=== PATIENT | female | born 1970 | race Two or more races ===

== ENCOUNTER → 2019-04-30 | Outpatient (CLI) | payer OTHER ==
--- NOTE | 2019-04-30 15:05 | CT ---
EXAMINATION TYPE: CT abdomen pelvis wo con DATE OF EXAM: 04/30/2019 COMPARISON: None INDICATION: Left sided back pain DLP: 2141.2 mGycm, Automated exposure control for dose reduction was used. CONTRAST: 0 mL of Isovue 300. Study performed without Oral Contrast TECHNIQUE: Axial images were obtained from above the diaphragm to the pubic rami in the axial plane a t 5 mm thick sections. Reconstructed images are reviewed on the computer in the coronal plane. FINDINGS: Limited CT sections are obtained the lung bases. The lung bases are clear. CT ABDOMEN: Liver: Normal Spleen: Normal Pancreas: Normal Adrenal glands: The adrenal glands are normal. Gallbladder: Normal Kidneys: No masses are evident. No hydronephrosis is present. No cysts are present. No renal stone s are evident Aorta: Normal Inferior vena cava: Normal. CT PELVIS: Loops of bowel within the abdomen and pelvis are normal. There are loops of bowel which are incom pletely distended or lack oral contrast limiting their evaluation. Appendix: Normal as visualized. Urinary bladder: Decompressed with limited evaluation. Genitourinary structures: There is a 3.9 cm cyst on the left ovary. Uterus appears unremarkable. Righ t adnexal region is normal. Osseous structures: No suspicious lytic or sclerotic lesions. IMPRESSIONS: 1. 3.9 cm cyst on the left ovary may be complex. Additional workup with pelvic ultrasound is recomme nded.
== END | disposition home or self-care (01) ==
LOC: RADCTMAIN 07:50
PROVIDERS: ATTEND Urology
DX: N83.202 Unspecified ovarian cyst, left side (principal); Z88.1 Allergy status to other antibiotic agents
CPT/HCPCS: 74176

== ENCOUNTER → 2019-06-17 | Outpatient (CLI) | payer OTHER ==
--- NOTE | 2019-06-17 13:18 | US ---
EXAMINATION TYPE: US pelvis complete transvag DATE OF EXAM: 06/17/2019 COMPARISON: Correlation CT 04/30/2019 CLINICAL HISTORY: 41-year-old female N83.29 Other ovarian cysts. Follow up to ct scan TECHNIQUE: Transvaginal (TV) and Transabdominal (TA) . Transabdominal sonographic images of the pel vis were acquired. Transvaginal sonographic images were medically necessary to better assess the fol lowing anatomy: Ovaries. FINDINGS: EXAM MEASUREMENTS: Uterus: 11.7 x 4.1 x 6.2 cm Endometrial Stripe: .4 cm Right Ovary: 3.9 x 3.8 x 4.0 cm 1. Uterus: Anteverted, wnl. Incidental 1.1 cm cervical nabothian cyst. 2. Endometrium: wnl 3. Right Ovary: Cystic area 3.9 x 3.8 x 4.0 cm 4. Left Ovary: Obscured by overlying bowel gas 5. Bilateral Adnexa: wnl 6. Posterior cul-de-sac: wnl IMPRESSION: 1. A 4.0 cm cystic area in the right adnexa likely represents a dominant follicle/functional cyst of the right ovary, new from prior CT. 2. The left ovary could not be visualized. 3. A 6-8 week follow-up can reassess for the left ovary and the 4.7 cm left ovarian cyst seen on the 04/30/2019 CT.
== END | disposition home or self-care (01) ==
LOC: RADUSWWP 09:22
PROVIDERS: ATTEND Family Medicine
DX: N83.202 Unspecified ovarian cyst, left side (principal); N94.89 Other specified conditions associated with female genital organs and menstrual cycle
CPT/HCPCS: 76830; 76856

== ENCOUNTER → 2020-04-17 | Outpatient (CLI) | payer OTHER ==
--- NOTE | 2020-04-18 11:42 | MM ---
Reason for exam: screening (asymptomatic). Last mammogram was performed 1 year and 1 month ago. History: Taking hormonal contraceptives. Physical Findings: A clinical breast exam by your physician is recommended on an annual basis and results should be correlated with mammographic findings. MG Screening Mammo w CAD Bilateral CC and MLO view(s) were taken. Prior study comparison: March 23, 2019, mammogram, performed at [facility]. October 18, 2016, mammogram, performed at [facility]. The breast tissue is heterogeneously dense. This may lower the sensitivity of mammography. Focal asymmetry central upper right breast anterior third position. ASSESSMENT: Incomplete: need additional imaging evaluation, BI-RAD 0 RECOMMENDATION: Special view mammogram of the right breast. If lesion persists on supplemental views, image directed ultrasound is recommended. [facility] will attempt to contact patient to return for supplemental views and ultrasound if indicated.
== END | disposition home or self-care (01) ==
LOC: RADMAMWWP 09:43
PROVIDERS: ATTEND Family Medicine
DX: Z12.31 Encounter for screening mammogram for malignant neoplasm of breast (principal)
CPT/HCPCS: 77067

== ENCOUNTER → 2020-05-04 | Outpatient (CLI) | payer OTHER ==
--- NOTE | 2020-05-04 11:01 | MM ---
Reason for exam: additional evaluation requested from abnormal screening. Last mammogram was performed 1 month ago. History: Taking hormonal contraceptives. Physical Findings: Nurse did not find any significant physical abnormalities on exam. MG Work Up Mamm w CAD RT Spot compression CC, spot compression MLO, and ML view(s) were taken of the right breast. Prior study comparison: April 17, 2020, bilateral MG screening mammo w CAD. March 23, 2019, mammogram, performed at [facility]. There is no discrete abnormality including area of concern right anterior breast. No significant new findings when compared with previous films. These results were verbally communicated with the patient and result sheet given to the patient on 05/04/20. ASSESSMENT: Benign, BI-RAD 2 RECOMMENDATION: Return to routine screening mammogram schedule for both breasts.
== END | disposition home or self-care (01) ==
LOC: RADMAMWWP 10:14
PROVIDERS: ATTEND Family Medicine
DX: R92.8 Other abnormal and inconclusive findings on diagnostic imaging of breast (principal)
CPT/HCPCS: 77065

== ENCOUNTER → 2021-03-09 | Outpatient (CLI) | payer OTHER ==
--- NOTE | 2021-03-09 13:05 | US ---
EXAMINATION TYPE: US abdomen complete DATE OF EXAM: 03/09/2021 COMPARISON: 04-30-2019 CLINICAL HISTORY: R10.11 RUQ ABD PAIN. EXAM MEASUREMENTS: Liver Length: 17.9 cm Gallbladder Wall: 0.2 cm CBD: 0.4 cm Spleen: 9.4 cm Right Kidney: 12.1x6.0x5.3 cm Left Kidney: 11.9x5.3x6.2 cm Pancreas: wnl Liver: wnl Gallbladder: Multiple stones seen largest 2.4cm Evidence for sonographic Bettencourt's sign: No CBD: wnl Spleen: wnl Right Kidney: wnl Left Kidney: wnl Upper IVC: wnl Abd Aorta: wnl The liver is homogenous. The intrahepatic portion of the IVC and proximal abdominal aorta are within normal limits. There is cholelithiasis. Common bile duct is unremarkable. The visualized portions of the pancreas are homogenous. The spleen is unremarkable. Kidneys are symmetric and free of hydr onephrosis. No renal lesions are seen. IMPRESSION: Cholelithiasis.
== END | disposition home or self-care (01) ==
LOC: RADUSWWP 08:52
PROVIDERS: ATTEND Surgery
DX: K80.20 Calculus of gallbladder without cholecystitis without obstruction (principal)
CPT/HCPCS: 76700

== ENCOUNTER 2021-04-09 08:57 | Day surgery (SDC) | payer OTHER ==
[2021-04-05 12:58] VITALS: BMI 39.9
--- NOTE | 2021-04-09 07:52 | P.GSHP ---
History of Present Illness H&P Date: 04/09/21 Chief Complaint: Chronic cholecystitis 50-year-old female has had complaints of right upper quadrant pain. Mild nausea. She believes the symptoms have gone back approximately 20 years or so. Over the last 2 years increasing in severity. She says it feels like there is a rock in there. No change in the color of her skin urine or stool. Pain is related by fatty foods and meat. Pain is nonradiating. Recent liver tests are normal. Recent ultrasound confirmed the presence of gallstones. Past Medical History Past Medical History: Diabetes Mellitus, GERD/Reflux, Hypertension, Thyroid Disorder Additional Past Medical History / Comment(s): Hx Gestational diabetes., hypothyroid., crohns, hx anemia, hayfever., gall bladder problems-nausea/pain History of Any Multi-Drug Resistant Organisms: None Reported Past Surgical History: Section, Orthopedic Surgery Additional Past Surgical History / Comment(s): bunionectomy, arthroscopy left knee Past Anesthesia/Blood Transfusion Reactions: Previous Problems w/ Anesthesia Additional Past Anesthesia/Blood Transfusion Reaction / Comment(s): states they had to give her extra rx twice. Past Psychological History: No Psychological Hx Reported Smoking Status: Never smoker Past Alcohol Use History: Occasional Additional Past Alcohol Use History / Comment(s): . Past Drug Use History: None Reported - Past Family History Mother Family Medical History: Deep Vein Thrombosis (DVT) Medications and Allergies Home Medications Medication Instructions Recorded Confirmed Type metFORMIN HCL [Glucophage Xr] 1,000 mg PO BID 10/22/19 04/05/21 History Blisovi Control 1 tab PO DIRECTED 04/05/21 History Fluticasone Nasal [place] [Flonase 1 spray EA NOSTRIL DAILY 04/05/21 04/05/21 History Nasal [place]] Levothyroxine Sodium 200 mcg PO DAILY 04/05/21 04/05/21 History Melatonin 5 mg PO HS PRN 04/05/21 04/05/21 History Multivit/Folic Acid/Vit K1 1 each PO DAILY 04/05/21 04/05/21 History [One-A-Day Women's 50 Plus Tab] Omeprazole 20 mg PO DAILY PRN 04/05/21 04/05/21 History lisinopriL [Zestril] 20 mg PO DAILY 04/05/21 04/05/21 History Allergies Allergy/AdvReac Type Severity Reaction Status Date / Time amlodipine [From Norvasc] Allergy Unknown Edema Verified 04/05/21 13:05 (obtained info from Dr Daugherty's office) metronidazole [From Flagyl] Allergy Itching, Verified 04/05/21 12:27 rash, severe stomach cramps. Surgical - Exam Physical exam: General: Well-developed, well-nourished HEENT: Normocephalic, sclerae nonicteric Abdomen: Nontender, nondistended Extremities: No edema Neuro: Alert and oriented Assessment and Plan (1) Chronic cholecystitis Narrative/Plan: 50-year-old female with chronic cholecystitis. Options reviewed. We'll proceed with laparoscopic, possible open cholecystectomy at this time. Risks of bleeding, infection, bile leak, bile duct injury, retained common bile duct stone, trocar injury, conversion to an open procedure, hernia, anesthesia related complications were reviewed. The patient understands and wishes to proceed. Status: Acute Code(s): K81.1 - CHRONIC CHOLECYSTITIS SNOMED Code(s): 15118007
[~2021-04-09 08:57] MED LIST: ACETAMINOPHEN TAB 500 MG TAB PO PRN; DEXAMETHASONE SOD PHOSPHATE 4 MG/ML 1 ML VIAL IV ONE; HEPARIN SODIUM,PORCINE/PF 5,000 UNIT/0.5 ML SYRINGE SQ PRN; HYDROmorphone 0.5 MG/0.5 ML SYRINGE IVP PRN; LACTATED RINGERS 1,000 ML IV SCH; LIDOCAINE 1% (10MG/ML) FOR IV START INTRADERMA PRN; MIDAZOLAM 2 MG/2 ML VIAL IV PRN; ONDANSETRON 4 MG/2 ML VIAL IVP ONE
[2021-04-09 09:47] LABS: Glucose,Whole Blood 132 mg/dL (75-99)
[2021-04-09] MEDS ORDERED: MIDAZOLAM 2 MG/2 ML VIAL IVP ONE (10:58)
[2021-04-09] MEDS ORDERED: MIDAZOLAM 2 MG/2 ML VIAL ONE (11:15)
[2021-04-09] MEDS ORDERED: ROCURONIUM 10 MG/ML (5 ML VIAL) IV ONE (11:15)
[2021-04-09] MEDS ORDERED: PHENYLEPHRINE-0.9% NACL SYG 1,000 MCG/10 ML SYRINGE ONE (11:15)
[2021-04-09] MEDS ORDERED: NEOSTIGMINE 1 MG/ML 10 ML VIAL ONE (11:15)
[2021-04-09] MEDS ORDERED: LIDOCAINE 1% INJ 10MG/ML (20 ML MDV) ONE (11:15)
[2021-04-09] MEDS ORDERED: GLYCOPYRROLATE 0.2 MG/ML 2 ML VIAL ONE (11:15)
[2021-04-09] MEDS ORDERED: .fentaNYL (PF) 50 MCG/ML 2 ML AMP ONE (11:15)
[2021-04-09] MEDS ORDERED: PROPOFOL 10 MG/ML 20 ML VIAL IV ONE (11:15)
[2021-04-09] MEDS ORDERED: SUCCINYLCHOLINE CHLORIDE 100 MG/5 ML SYR IV ONE (11:15)
[2021-04-09] MEDS ORDERED: BUPIVACAIN-EPI 0.25%-1:200,000 30 ML VIAL SQ ONE ×2 (11:41)
[2021-04-09] MEDS ORDERED: LACTATED RINGERS 1,000 ML IV ONE (11:55)
[2021-04-09] MEDS ORDERED: ACETAMINOPHEN TAB 325 MG TAB PO SCH (12:45)
--- NOTE | 2021-04-09 12:48 | P.OP ---
Date of Procedure: 04/09/21 Procedure(s) Performed: PREOPERATIVE DIAGNOSIS: Chronic cholecystitis POSTOPERATIVE DIAGNOSIS: Same PROCEDURE: Laparoscopic cholecystectomy SURGEON: Debo EBL: Minimal see anesthesia record ANESTHESIA: Gen. COMPLICATIONS: None OPERATIVE PROCEDURE: The patient was brought and placed on the operating room table in the supine position. The patient was placed under general anesthesia at that time. The abdomen was prepped and draped in the usual sterile fashion. A small vertical infraumbilical incision was made. The fascia was grasped with the Petra forceps. The fascia was retracted anteriorly. The Veress needle was advanced into the peritoneal cavity. The saline drop test was normal. Insufflation took place up to 15 mmHg. A 5 mm optical trocar was advanced and the peritoneal cavity. 2 additional 5 mm trochars were placed in the right upper quadrant under direct visualization. A 12 mm trocar was advanced into the epigastric incision site. The gallbladder was retracted superiorly and laterally. The peritoneum overlying the infundibulum was bluntly dissected. The patient's cystic duct was visualized. The junction between the cystic duct common and hepatic duct was identified. The critical view of safety was achieved after blunt dissection. The patient's cystic duct itself was fairly short. There was a small stone in the cystic duct close to the common bile duct that was milked back into the gallbladder. The cystic duct was then divided after placement of 3 12 mm clips on the patient's side and one on the specimen side. The cystic artery was identified and clipped as well. A small vessel was seen along the gallbladder fossa and clipped as well. The gallbladder was then removed from the liver bed using electrocautery. The gallbladder was then removed from the epigastric trocar site with an Endo Catch bag. In order to remove the gallbladder from the abdominal cavity the skin incision was lengthened. The gallbladder fossa was irrigated with saline. There was no evidence of any bleeding or biliary drainage seen. The fascia at the 12 millimeter site was closed using a Almas-Christiano 0 Vicryl stitch. The trochars were then removed. The skin at all 4 sites was closed using a 4-0 Monocryl stitch. Skin glue was utilized on the incision sites. At the end of this procedure the sponge and needle counts were correct. DISPOSITION: Stable to the recovery room
[2021-04-09 12:52] VITALS: TEMP 96.8
[2021-04-09 13:03] LABS: Glucose,Whole Blood 178 mg/dL (75-99)
[2021-04-09 14:34] VITALS: BP 133/80; PULSE 80; RESP 16
[2021-04-09] MEDS ORDERED: IBUPROFEN 600 MG TAB PO SCH (15:45)
== END 2021-04-09 15:11 | disposition home or self-care (01) ==
LOC: OR 08:57
PROVIDERS: ATTEND Surgery
DX: K80.10 Calculus of gallbladder with chronic cholecystitis without obstruction (principal); E11.9 Type 2 diabetes mellitus without complications; K21.9 Gastro-esophageal reflux disease without esophagitis; I10 Essential (primary) hypertension; K50.90 Crohn's disease, unspecified, without complications; E03.9 Hypothyroidism, unspecified; Z79.84 Long term (current) use of oral hypoglycemic drugs; Z79.899 Other long term (current) drug therapy
CPT/HCPCS: 81025; 88304; 47562; J2250; J1100; J2710; J0690; J2405; J2001; J3010; J2370; J0330; J2704; J1170; J1644

== ENCOUNTER → 2021-06-13 | Outpatient (CLI) | payer OTHER ==
[2021-06-13 19:23] LABS: Basophils # (A) 0.09 X 10*3/uL (0.00-0.10); Basophils % (A) 0.7 %; Eosinophils # (A) 0.55 X 10*3/uL (0.04-0.35); Eosinophils % (A) 4.2 %; HCT 43.4 % (37.2-46.3); HGB 13.8 g/dL (12.0-15.0); Immature Grans, Automated 0.2 %; Lymphocytes # (A) 4.65 X 10*3/uL (0.90-5.00); Lymphocytes % (A) 35.5 %; MCH 28.5 pg (27.0-32.0); MCHC 31.8 g/dL (32.0-37.0); MCV 89.7 fL (80.0-97.0); Mean Platelet Volume 10.5 fL (9.5-12.2); Monocytes # (A) 0.73 X 10*3/uL (0.20-1.00); Monocytes % (A) 5.6 %; NRBC Per 100 WBC 0 /100 WBCS (0.0-0.0); Neutrophils # (A) 7.05 X 10*3/uL (1.80-7.70); Neutrophils % (A) 53.8 %; Platelet Count 413 X 10*3/uL (140-440); RBC 4.84 X 10*6/uL (4.10-5.20); RDW 14.8 % (11.5-14.5); WBC 13.09 X 10*3/uL (4.50-10.00)
== END | disposition home or self-care (01) ==
LOC: LABPAT 12:03
PROVIDERS: ATTEND Obstetrics & Gynecology Obstetrics
DX: Z01.812 Encounter for preprocedural laboratory examination (principal); N92.0 Excessive and frequent menstruation with regular cycle
CPT/HCPCS: 36415; 85025

== ENCOUNTER 2021-06-26 07:08 | Day surgery (SDC) | payer OTHER ==
[2021-06-22 15:02] VITALS: BMI 41.1
[~2021-06-26 07:08] MED LIST changes: -ACETAMINOPHEN TAB 500 MG TAB PO PRN; -HEPARIN SODIUM,PORCINE/PF 5,000 UNIT/0.5 ML SYRINGE SQ PRN; -LIDOCAINE 1% (10MG/ML) FOR IV START INTRADERMA PRN; -MIDAZOLAM 2 MG/2 ML VIAL IV PRN; +Pre Op ABX Message 1 EACH MISC MISCELLANE ONE
[2021-06-26 07:38] VITALS: RESP 16
[2021-06-26 08:10] LABS: Glucose,Whole Blood 151 mg/dL (75-99)
[2021-06-26] MEDS ORDERED: MIDAZOLAM 2 MG/2 ML VIAL IV ONE (08:52)
[2021-06-26] MEDS ORDERED: SUCCINYLCHOLINE CHLORIDE 100 MG/5 ML SYR IV ONE (09:11)
[2021-06-26] MEDS ORDERED: KETOROLAC 15 MG/ML 1 ML VIAL ONE (09:11)
[2021-06-26] MEDS ORDERED: fentaNYL (PF) 50 MCG/ML 2 ML AMP ONE (09:11)
[2021-06-26] MEDS ORDERED: PROPOFOL 10 MG/ML 20 ML VIAL IV ONE (09:11)
[2021-06-26] MEDS ORDERED: LIDOCAINE 1% INJ 10MG/ML (20 ML MDV) ONE (09:11)
--- NOTE | 2021-06-26 09:51 | P.OP ---
Date of Procedure: 06/26/21 Preoperative Diagnosis: Menorrhagia, failed medical treatment Postoperative Diagnosis: Same Procedure(s) Performed: Hysteroscopy, dilation and curettage, endometrial ablation with NovaSure Anesthesia: ISAI Surgeon: Kelly Arshad Estimated Blood Loss (ml): 5 IV fluids (ml): 200 Urine output (ml): 50 Pathology: other (Endometrial curettings) Condition: stable Disposition: PACU Indications for Procedure: Irregular heavy menstrual cycles despite treatment with OCP Operative Findings: Normal-appearing endometrial cavity Description of Procedure: Patient was taken back to the operating suite where general anesthesia was obtained without difficulty by the anesthesia department. She was prepped and draped in normal sterile fashion in the dorsal lithotomy position. I Bradley catheter was used to drain the bladder of clear yellow urine. A weighted speculum was placed in the posterior vaginal vault, the anterior lip of the cervix was grasped with a single-tooth tenaculum. The endocervical canal was then serially dilated. Hysteroscope was placed through the cervix and toward the endometrium. An intact cavity was noted, normal in appearance. Pictures were taken and hysteroscope was removed. At this time a sharp curettage was performed and the specimen was sent to pathology for analysis. The NovaSure device was then opened and set to the patient's uterine measurements, length of 4, width of 2.9, power of 62. Afterwards the cavity assessment was completed the cycle was allowed to complete for 82 seconds. Afterwards the NovaSure was removed without difficulty intact. The single-tooth tenaculum was taken off of the anterior lip of the cervix. All counts were noted to be correct 2. Patient tolerated procedure well and was taken the recovery room awake in stable condition.
[2021-06-26 09:58] VITALS: TEMP 97.3
[2021-06-26] MEDS ORDERED: SODIUM CHLORIDE 0.9% 1,000 ML IV ONE ×4 (10:04→10:35)
[2021-06-26 10:57] VITALS: BP 143/84; PULSE 90
== END 2021-06-26 11:17 | disposition home or self-care (01) ==
LOC: OR 07:08
PROVIDERS: ATTEND Obstetrics & Gynecology Obstetrics
DX: N92.0 Excessive and frequent menstruation with regular cycle (principal); K50.90 Crohn's disease, unspecified, without complications; E11.9 Type 2 diabetes mellitus without complications; Z87.19 Personal history of other diseases of the digestive system; I10 Essential (primary) hypertension; E03.9 Hypothyroidism, unspecified; Z98.891 History of uterine scar from previous surgery; Z98.890 Other specified postprocedural states; Z87.448 Personal history of other diseases of urinary system; Z90.49 Acquired absence of other specified parts of digestive tract; Z82.49 Family history of ischemic heart disease and other diseases of the circulatory system; Z83.49 Family history of other endocrine, nutritional and metabolic diseases; Z83.3 Family history of diabetes mellitus; Z84.1 Family history of disorders of kidney and ureter; Z79.84 Long term (current) use of oral hypoglycemic drugs; Z79.890 Hormone replacement therapy; Z79.899 Other long term (current) drug therapy; Z88.1 Allergy status to other antibiotic agents; Z88.8 Allergy status to other drugs, medicaments and biological substances
CPT/HCPCS: 81025; 88305; 58563; J2250; J1100; J2405; J2001; J3010; J1885; J0330; J2704

== ENCOUNTER → 2022-05-16 | Outpatient (CLI) | payer OTHER ==
--- NOTE | 2022-05-17 09:04 | MM ---
Reason for Exam: Screening (asymptomatic). Last mammogram was performed 2 year(s) and 1 month(s) ago. Patient History: Menarche at age 12. First Full-Term at age 24. Currently using Hormonal Contraceptives. Last menstrual period: Risk Values: Joy 5 year model risk: 1.0%. NCI Lifetime model risk: 8.7%. Prior Study Comparison: 03/23/2019 Screening Mammogram, [facility]. 04/17/2020 Bilateral Screening Mammogram, [facility]. 05/04/2020 Right Diagnostic Mammogram, [facility]. Tissue Density: There are scattered fibroglandular densities. Findings: Analyzed By CAD. There is no suspicious group of microcalcifications or new suspicious mass in either breast. Overall Assessment: Negative, BI-RAD 1 Management: Screening Mammogram of both breasts in 1 year. A clinical breast exam by your physician is recommended on an annual basis and results should be correlated with mammographic findings. Electronically signed and approved by: Brian Dominguez D.O.
== END | disposition home or self-care (01) ==
LOC: RADMAMWWP 09:39
PROVIDERS: ATTEND Family Medicine
DX: Z12.31 Encounter for screening mammogram for malignant neoplasm of breast (principal)
CPT/HCPCS: 77063; 77067

== ENCOUNTER → 2023-05-19 | Outpatient (CLI) | payer OTHER ==
--- NOTE | 2023-05-20 16:03 | MM ---
Reason for Exam: Screening (asymptomatic). Last screening mammogram was performed 12 month(s) ago. Patient History: Menarche at age 12. First Full-Term at age 24. Currently using Hormonal Contraceptives. Risk Values: Joy 5 year model risk: 1.0%. NCI Lifetime model risk: 8.5%. Prior Study Comparison: 04/17/2020 Bilateral Screening Mammogram, [facility]. 05/04/2020 Right Diagnostic Mammogram, [facility]. 05/16/2022 Bilateral MG 3D screening mammo w/cad, [facility]. Tissue Density: There are scattered fibroglandular densities. Findings: Analyzed By CAD. There is no suspicious group of microcalcifications or new suspicious mass in either breast. Overall Assessment: Negative, BI-RAD 1 Management: Screening Mammogram of both breasts in 1 year. . Patient should continue monthly self-breast exams. A clinical breast exam by your physician is recommended on an annual basis. This exam should not preclude additional follow-up of suspicious palpable abnormalities. Note on Joy scores and lifetime risk: 1. A Joy score greater than 3% is considered moderate risk. If this is the case, consider specialist referral to assess eligibility for a risk reducing agent. 2. If overall lifetime risk for the development of breast cancer is 20% or higher, the patient may qualify for future screening with alternating mammogram and breast MRI. Electronically signed and approved by: Ghulam Shaikh M.D. Radiologist
== END | disposition home or self-care (01) ==
LOC: RADMAMWWP 10:30
PROVIDERS: ATTEND Family Medicine
DX: Z12.31 Encounter for screening mammogram for malignant neoplasm of breast (principal); R92.323 Mammographic fibroglandular density, bilateral breasts; Z92.0 Personal history of contraception
CPT/HCPCS: 77063; 77067

== ENCOUNTER → 2024-06-01 | Outpatient (CLI) | payer OTHER ==
--- NOTE | 2024-06-01 13:43 | MM ---
Reason for Exam: Screening (asymptomatic). Last mammogram was performed 1 year(s) and 1 month(s) ago. Patient History: Menarche at age 12. First Full-Term at age 24. Postmenopausal. Used Hormonal Contraceptives. Risk Values: Joy 5 year model risk: 1.1%. NCI Lifetime model risk: 8.4%. Prior Study Comparison: 05/04/2020 Right Diagnostic Mammogram, [facility]. 05/16/2022 Bilateral MG 3D screening mammo w/cad, [facility]. 05/19/2023 Bilateral MG 3D screening mammo w/cad, [facility]. Tissue Density: There are scattered areas of fibroglandular density. Findings: Analyzed By CAD. There is no suspicious group of microcalcifications or new or enlarging suspicious mass in either breast. Overall Assessment: Negative, BI-RAD 1 Management: Screening Mammogram of both breasts in 1 year. . Patient should continue monthly self-breast exams. A clinical breast exam by your physician is recommended on an annual basis. This exam should not preclude additional follow-up of suspicious palpable abnormalities. Note on Joy scores and lifetime risk: 1. A Joy score greater than 3% is considered moderate risk. If this is the case, consider specialist referral to assess eligibility for a risk reducing agent. 2. If overall lifetime risk for the development of breast cancer is 20% or higher, the patient may qualify for future screening with alternating mammogram and breast MRI. [facility], , 06/01/2024 1:41 PM. Electronically signed and approved by: Jacky Colvin M.D.
== END | disposition home or self-care (01) ==
LOC: RADMAMWWP 13:02
PROVIDERS: ATTEND Family Medicine
DX: Z12.31 Encounter for screening mammogram for malignant neoplasm of breast (principal); R92.323 Mammographic fibroglandular density, bilateral breasts; Z78.0 Asymptomatic menopausal state
CPT/HCPCS: 77063; 77067

== ENCOUNTER 2024-10-07 06:51 | Day surgery (SDC) | payer OTHER ==
[2024-10-06 08:56] VITALS: BMI 39.1
[2024-10-07] MEDS ORDERED: LACTATED RINGERS 1,000 ML IV SCH (07:10)
[2024-10-07 07:30] LABS: Glucose,Whole Blood 157 mg/dL (70-110)
[2024-10-07] MEDS ORDERED: PROPOFOL 10 MG/ML 20 ML VIAL IV ONE (07:30)
[2024-10-07] MEDS: IV FLUID CONTINUATION 1,000 ML IV ONE (07:30)
[2024-10-07] MEDS ORDERED: LIDOCAINE 1% INJ 10MG/ML (20 ML MDV) ONE (07:30)
[2024-10-07 07:34] VITALS: TEMP 97.1
--- NOTE | 2024-10-07 07:34 | P.GSHP ---
History of Present Illness H&P Date: 10/07/24 CHIEF COMPLAINT: Dysphagia and colon screen HISTORY OF PRESENT ILLNESS: The patient is a 54-year-old female who presents with dysphagia, gastroesophageal reflux disease and need for colon screen. Upper and lower endoscopy were offered for further evaluation and management. PAST MEDICAL HISTORY: Please see list. PAST SURGICAL HISTORY: Please see list. MEDICATIONS: Please see list. ALLERGIES: Please see list. SOCIAL HISTORY: No illicit drug use FAMILY HISTORY: No reports of Crohn disease or ulcerative colitis. REVIEW OF ORGAN SYSTEMS: CONSTITUTIONAL: No reports of fevers or chills. GI: Denies any blood in stools or constipation. PHYSICAL EXAM: VITAL SIGNS: Stable GENERAL: Well-developed pleasant in no acute distress. HEENT: No scleral icterus. Extraocular movements grossly intact. Moist buccal mucosa. NECK: Supple without lymphadenopathy. CHEST: Unlabored respirations. Equal bilateral excursions. CARDIOVASCULAR: Regular rate and rhythm. Distal 2+ pulses. ABDOMEN: Soft, nondistended. MUSCULOSKELETAL: No clubbing, cyanosis, or edema. ASSESSMENT: 1. Dysphagia and gastroesophageal reflux disease 2. Colon screen. PLAN: 1. Recommend proceeding with an upper and lower endoscopy Past Medical History Past Medical History: Diabetes Mellitus, GERD/Reflux, Hypertension, Thyroid Disorder Additional Past Medical History / Comment(s): Hx Gestational diabetes, hypothyroid, crohns, hx anemia, hayfever. History of Any Multi-Drug Resistant Organisms: None Reported Past Surgical History: Section, Cholecystectomy, Orthopedic Surgery, U terine Ablation Additional Past Surgical History / Comment(s): Bunionectomy, arthroscopy left knee. Past Anesthesia/Blood Transfusion Reactions: Previous Problems w/ Anesthesia Additional Past Anesthesia/Blood Transfusion Reaction / Comment(s): Patient states they had to give her extra medication twice. No hx blood transfusion. Smoking Status: Never smoker, Second hand smoke exposure - Past Family History Mother Family Medical History: Deep Vein Thrombosis (DVT) Medications and Allergies Home Medications Medication Instructions Recorded Confirmed Type metFORMIN HCL [Glucophage Xr] 1,000 mg PO BID 10/22/19 10/07/24 History Fluticasone Nasal [place] [Flonase 2 spray EA NOSTRIL DAILY PRN 04/05/21 10/07/24 History Nasal [place]] Multivit/Folic Acid/Vit K1 1 each PO DAILY 04/05/21 10/07/24 History [One-A-Day Women's 50 Plus Tab] Enulose 30 mg PO BID PRN 10/06/24 10/07/24 History Levothyroxine Sodium 175 mcg PO DAILY 10/06/24 10/07/24 History Phentermine HCl 37.5 mg PO DAILY 10/06/24 10/07/24 History Vitamin B Complex 1 each PO DAILY 10/06/24 10/07/24 History glipiZIDE [glipiZIDE ER] 10 mg PO DAILY 10/06/24 10/07/24 History lisinopriL [Zestril] 10 mg PO DAILY 10/06/24 10/07/24 History Allergies Allergy/AdvReac Type Severity Reaction Status Date / Time amlodipine [From [facility]] Allergy Unknown Edema Verified 10/07/24 07:18 (obtained info from Dr Daugherty's office) metronidazole [From [facility]] Allergy Itching, Verified 10/07/24 07:18 rash, severe stomach cramps. Surgical - Exam Vital Signs Temp Pulse Resp BP 97.1 F L 100 15 126/78 10/07/24 07:32 10/07/24 07:32 10/07/24 07:32 10/07/24 07:32 Results - Labs Abnormal Lab Results - Last 24 Hours (Table) 10/07/24 Range/Units 07:29 POC Glucose (mg/dL) 157 H (70-110) mg/dL
[2024-10-07] MEDS: LACTATED RINGERS 1,000 ML IV ONE ×2 (07:35→08:02)
--- NOTE | 2024-10-07 07:48 | P.PCN ---
Date of Procedure: 10/07/24 Description of Procedure: PREOPERATIVE DIAGNOSIS: Gastroesophageal reflux disease. Morbid obesity. Dysphagia POSTOPERATIVE DIAGNOSIS: Gastroesophageal reflux disease. Morbid obesity. Gastritis. OPERATION: Esophagogastroduodenoscopy with cold forceps biopsies along esophagus, antrum and duodenum SURGEON: Hannah Chu MD ANESTHESIA: MAC. INDICATIONS: The patient is a 54-year-old female who presents with dysphagia and reflux disease. Benefits and risks of the procedure were described. Informed consent was obtained. DESCRIPTION: The patient was brought into the endoscopy suite and laid in the left lateral decubitus position. An Olympus gastroscope was passed along the posterior oropharynx down to the distal esophagus where the squamocolumnar junction was encountered at 37 cm from the incisors. The stomach was entered and no bile reflux was found. Additional findings are listed below. Biopsies with cold forceps were obtained of the antrum. The first through third portion of the duodenum was examined. Retroflexion of the scope confirmed Hill grade 1 lower esophageal valve. The squamocolumnar junction demonstrated LA grade B erosive esophagitis. The stomach was desufflated. The patient tolerated the procedure well. FINDINGS: Squamocolumnar junction 37 cm from the incisors. Diaphragmatic hiatus at 37 cm. Hill grade 1 lower esophageal valve. LA grade B erosive esophagitis. Biopsies obtained Biopsies obtained of the duodenum. Chronic gastritis with biopsies obtained. RECOMMENDATIONS: Upper endoscopy as needed.
[2024-10-07 08:08] VITALS: RESP 16
--- NOTE | 2024-10-07 08:08 | P.PCN ---
Date of Procedure: 10/07/24 Description of Procedure: PREOPERATIVE DIAGNOSIS: Colonoscopy screening. POSTOPERATIVE DIAGNOSIS: Colonoscopy screening. OPERATION: Colonoscopy to the cecum, ileocecal valve and appendiceal orifice. SURGEON: Hannah Chu MD. ANESTHESIA: MAC. INDICATIONS: The patient is a 54-year-old female who presents for colonoscopy screening. Benefits and risks were described and informed consent was obtained. DESCRIPTION OF PROCEDURE: The patient had undergone Suprep. The patient had been brought into the operating room and laid in the left lateral decubitus position. After adequate intravenous sedation, the rectum was examined with 2% lidocaine jelly. No external hemorrhoids were encountered. The rectal tone was within normal limits. No lesions were palpated in the rectal vault. An Olympus colonoscope was advanced until the cecum, ileocecal valve and appendiceal orifice were clearly viewed. The prep was fair. No scattered diverticulosis was encountered. No colonic polyps were found. No evidence of focal colitis was found. Retroflexion of the scope demonstrated grade 1 internal hemorrhoids without active bleeding or inflammation. The colon was desufflated. The patient had tolerated the procedure well. Withdrawal time was over 6 minutes. FINDINGS: Aronchick preparation quality scale 3 (1-5) Internal hemorrhoids, grade 1 No external prolapsed hemorrhoids. No arteriovenous malformations. No adenomatous polyps. No focal colitis. No scattered diverticulosis RECOMMENDATIONS: Lower endoscopy in 5 years, 2029 with 1 week bowel prep Plan - Discharge Summary Discharge Rx Participant: Yes New Discharge Prescriptions: Continue metFORMIN HCL [Glucophage XR] 1,000 mg PO BID lisinopriL [Zestril] 10 mg PO DAILY glipiZIDE [glipiZIDE ER] 10 mg PO DAILY Phentermine HCl 37.5 mg PO DAILY Enulose 30 mg PO BID PRN PRN Reason: Constipation Fluticasone Nasal [place] [Flonase Nasal Lyon] 2 spray EA NOSTRIL DAILY PRN PRN Reason: Allergic Reaction Multivit/Folic Acid/Vit K1 [One-A-Day Women's 50 Plus Tab] 1 each PO DAILY Levothyroxine Sodium 175 mcg PO DAILY Vitamin B Complex 1 each PO DAILY Discharge Medication List metFORMIN HCL [Glucophage XR] 1,000 mg PO BID 10/22/19 [History] Fluticasone Nasal [place] [Flonase Nasal [place]] 2 spray EA NOSTRIL DAILY PRN 04/05/21 [History] Multivit/Folic Acid/Vit K1 [One-A-Day Women's 50 Plus Tab] 1 each PO DAILY 04/05/21 [History] Enulose 30 mg PO BID PRN 10/06/24 [History] Levothyroxine Sodium 175 mcg PO DAILY 10/06/24 [History] Phentermine HCl 37.5 mg PO DAILY 10/06/24 [History] Vitamin B Complex 1 each PO DAILY 10/06/24 [History] glipiZIDE [glipiZIDE ER] 10 mg PO DAILY 10/06/24 [History] lisinopriL [Zestril] 10 mg PO DAILY 10/06/24 [History] Follow up Appointment(s)/Referral(s): Hannah Chu MD [STAFF PHYSICIAN] - 10/26/24 4:00 pm Patient Instructions/Handouts: Gastritis (DC) Activity/Diet/Wound Care/Special Instructions: Repeat colonoscopy 5 years, 2009 Discharge Disposition: HOME SELF-CARE
[2024-10-07 08:35] VITALS: BP 112/79; PULSE 69
== END 2024-10-07 08:56 | disposition home or self-care (01) ==
LOC: ORWHC2ENDO 06:51
PROVIDERS: ATTEND Surgery Plastic and Reconstructive Surgery
DX: Z12.11 Encounter for screening for malignant neoplasm of colon (principal); K21.9 Gastro-esophageal reflux disease without esophagitis; K29.60 Other gastritis without bleeding; K64.8 Other hemorrhoids; Z79.84 Long term (current) use of oral hypoglycemic drugs; Z79.890 Hormone replacement therapy; E03.9 Hypothyroidism, unspecified; E11.9 Type 2 diabetes mellitus without complications; E66.01 Morbid (severe) obesity due to excess calories; I10 Essential (primary) hypertension; Z88.1 Allergy status to other antibiotic agents; Z88.8 Allergy status to other drugs, medicaments and biological substances
CPT/HCPCS: 43239; J2003; J2704; G0121; 88305